=== PATIENT | female | born 1950 | race Caucasian/White ===

== ENCOUNTER 2019-02-03 10:52 | Emergency (ER) | payer OTHER, MEDICARE ==
[~2019-02-03] VITALS: Ht 152.4 cm; Wt 104.3 kg
--- OUTSIDE RECORDS SUMMARY | ~2019-02-03 | XMS | Clinical Summary ---
Demographics + + + | Address | [address] [place] [address] | | | [place] [address] | + + + | Home Phone | | + + + | Preferred Language | Unknown | + + + | Marital Status | | + + + | Voodoo Affiliation | Unknown | + + + | Race | Unknown | + + + | Ethnic Group | Unknown | + + + Author + + + | Author | [email or web address] (Historical as of | | | 11-16-18) | + + + | Organization | [email or web address] (Historical as of | | | 11-16-18) | + + + | Address | Unknown | + + + | Phone | Unavailable | + + + Support + + + + + | Name | Relationship | Address | Phone | + + + + + | Paulino Lawson | ECON | [address] | | | | | [place] | | | | | [address] | | + + + + + Care Team Providers + +------+ + | Care Shop Technician Name | Role | Phone | + +------+ + PP | Unavailable | + +------+ + Allergies Not on File Current Medications Not on file Active Problems Not on file Social History + +-------+ +--------+------+ | Tobacco Use | Types | Packs/Day | Years | Date | | | | | Used | | + +-------+ +--------+------+ | Never Assessed | | | | | + +-------+ +--------+------+ + + + | Sex Assigned at | Date Recorded | | | | + + + | Not on file | | + + + Plan of Treatment Not on file Results Not on filefrom Last 3 Months"
--- OUTSIDE RECORDS SUMMARY | ~2019-02-03 | XMS | Clinical Summary ---
Demographics + + + | Address | [address] | | | [place] [address] | + + + | Home Phone | | + + + | Preferred Language | Unknown | + + + | Marital Status | | + + + | Confucianism Affiliation | Unknown | + + + | Race | Unknown | + + + | Ethnic Group | Unknown | + + + Author + + + | Author | [facility] | | | and [place] | + + + | Organization | [facility] | | | and [place] | + + + | Address | Unknown | + + + | Phone | Unavailable | + + + Support + + +---------+ + | Name | Relationship | Address | Phone | + + +---------+ + | Paulino Lawson | ECON | Unknown | | + + +---------+ + | Aye Castro | ECON | Unknown | | + + +---------+ + | Nisha Barton | ECON | Unknown | | + + +---------+ + | Sheldon Lawson | ECON | Unknown | | + + +---------+ + Care Team Providers + +------+ + | Care Compensation Coordinator Name | Role | Phone | + +------+ + | Wes Campuzano MD | PCP | | + +------+ + Allergies + + + + + + | Active Allergy | Reactions | Severity | Noted | Comments | | | | | Date | | + + + + + + | Iodine | Other (See Comments) | Medium | | "got faint" with | | | | | | IVP. Does fine if | | | | | | given benadryl | | | | | | before | + + + + + + | Oxycodone | Itching | Low | 08/07/19 | | | | | | 19 | | + + + + + + Medications + + + +---------+------+------+-------+ | Medication | Sig | Dispensed | Refills | Star | End | Statu | | | | | | t | Date | s | | | | | | Date | | | + + + +---------+------+------+-------+ | cetirizine (ZYRTEC | Take 10 mg by mouth | | 0 | / | | Activ | | ALLERGY) 10 mg | Daily. | | | 3/20 | | e | | tablet | | | | 12 | | | + + + +---------+------+------+-------+ | sertraline | Take 100 mg by mouth | | 0 | 09/1 | | Activ | | (ZOLOFT) 100 mg | Daily. | | | 3/20 | | e | | tablet | | | | 12 | | | + + + +---------+------+------+-------+ | aspirin (BABY | Take 81 mg by mouth. | | 0 | 09/1 | | Activ | | ASPIRIN) 81 mg | | | | 3/20 | | e | | chewable tablet | | | | 12 | | | + + + +---------+------+------+-------+ | Ascorbic Acid | Take 250 mg by mouth | | 0 | | | Activ | | (VITAMIN C) 250 MG | Daily. | | | | | e | | tablet | | | | | | | + + + +---------+------+------+-------+ | celecoxib | Take 1 capsule by | 60 | 2 | 05/2 | | Activ | | (CELEBREX) 100 mg | mouth 2 times daily. | capsule | | 8/20 | | e | | capsuleIndications: | | | | 15 | | | | Chronic low back | | | | | | | | pain, DDD | | | | | | | | (degenerative disc | | | | | | | | disease), lumbar, | | | | | | | | DDD (degenerative | | | | | | | | disc disease), | | | | | | | | cervical, Chronic | | | | | | | | neck pain | | | | | | | + + + +---------+------+------+-------+ | azelastine | Place 1 drop into | | 0 | | | Activ | | (OPTIVAR) 0.05 % | both eyes Twice | | | | | e | | ophthalmic solution | daily as needed. | | | | | | + + + +---------+------+------+-------+ | betamethasone | Apply 1 Application | | 0 | | | Activ | | dipropionate 0.05% | topically Twice | | | | | e | | cream | daily as needed. | | | | | | + + + +---------+------+------+-------+ | | Apply topically | | 0 | | | Activ | | clotrimazole-betamet | Twice daily as | | | | | e | | hasone (LOTRISONE) | needed. | | | | | | | cream | | | | | | | + + + +---------+------+------+-------+ | desonide (DESOWEN) | Apply topically | | 0 | | | Activ | | 0.05% cream | Twice daily as | | | | | e | | | needed. | | | | | | + + + +---------+------+------+-------+ | econazole 1% cream | Apply topically | | 0 | | | Activ | | | Twice daily as | | | | | e | | | needed. | | | | | | + + + +---------+------+------+-------+ | fluticasone | 1 spray by Nasal | | 0 | | | Activ | | (FLONASE) 50 | route Daily. | | | | | e | | mcg/nasal spray | | | | | | | + + + +---------+------+------+-------+ | | Take 1 tablet by | | 0 | | | Activ | | HYDROcodone-acetamin | mouth every 6 hours | | | | | e | | ophen (NORCO) 5-325 | as needed for Pain. | | | | | | | mg per tablet | | | | | | | + + + +---------+------+------+-------+ | ipratropium | 2 sprays by Nasal | | 0 | | | Activ | | (ATROVENT) 0.03% | route 3 times daily | | | | | e | | nasal spray | as needed for | | | | | | | | Rhinitis. | | | | | | + + + +---------+------+------+-------+ | pramipexole | Take 0.75 mg by | | 0 | | | Activ | | (MIRAPEX) 0.75 MG | mouth as needed. | | | | | e | | tablet | | | | | | | + + + +---------+------+------+-------+ | mirabegron | Take 50 mg by mouth | | 0 | | | Activ | | (MYRBETRIQ) 50 mg ER | Daily. | | | | | e | | tablet | | | | | | | + + + +---------+------+------+-------+ | omeprazole | Take 20 mg by mouth | | 0 | | | Activ | | (PRILOSEC) 20 mg | every morning | | | | | e | | capsule | (before breakfast). | | | | | | + + + +---------+------+------+-------+ | Pseudoephedrine | Take by mouth as | | 0 | | | Activ | | HCl (SUDAFED 12 HOUR | needed. | | | | | e | | PO) | | | | | | | + + + +---------+------+------+-------+ | trospium 20 MG | Take 20 mg by mouth | | 0 | | | Activ | | tablet | 2 times daily. | | | | | e | + + + +---------+------+------+-------+ | cholecalciferol | Take 1,000 Units by | | 0 | | | Activ | | (VITAMIN D-3) 1000 | mouth Daily. | | | | | e | | units TABS | | | | | | | + + + +---------+------+------+-------+ | fexofenadine | Take 180 mg by mouth | | 0 | | | Activ | | (RED) 180 mg | Daily. | | | | | e | | tablet | | | | | | | + + + +---------+------+------+-------+ | | 1 spray by Each Nare | | 0 | | | Activ | | azelastine-fluticaso | route Daily. | | | | | e | | ne (DYMISTA) 137-50 | | | | | | | | mcg/nasal spray | | | | | | | + + + +---------+------+------+-------+ | mometasone | 2 sprays by Both | | 0 | | | Activ | | (NASONEX) 50 | nostrils route Daily | | | | | e | | mcg/nasal spray | as needed. 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 | | + + + | Preventative health care | | + + + + + | Overview: Flex sig/colon: 2006 | | | | EGD: 05/30/11 | | | | Mammo: 05/2007 | | | | Pap: 09/2008 | + + Family History + + +------+ + | Medical History | Relation | Name | Comments | + + +------+ + | Arthritis | Father | | | + + +------+ + | Diabetes | Father | | | + + +------+ + | Heart disease | Father | | | + + +------+ + | Lung cancer | Father | | | + + +------+ + | Diabetes | Mother | | | + + +------+ + | Heart disease | Mother | | | + + +------+ + | High blood pressure | Mother | | | + + +------+ + | Lung cancer | Mother | | | + + +------+ + + +------+--------+ + | Relation | Name | Status | Comments | + +------+--------+ + | Father | | | | + +------+--------+ + | Mother | | | | + +------+--------+ + Social History + +-------+ +--------+------+ | Tobacco Use | Types | Packs/Day | Years | Date | | | | | Used | | + +-------+ +--------+------+ | Never Smoker | | | | | + +-------+ +--------+------+ + +---+---+---+ | Smokeless Tobacco: | | | | | Never Used | | | | + +---+---+---+ + + +---------+ + | Alcohol Use | Drinks/We | oz/Week | Comments | | | ek | | | + + +---------+ + | Yes | 1 | 0.6 | | | | Glasses | | | | | of wine | | | + + +---------+ + + + + | Sex Assigned at | Date Recorded | | | | + + + | Not on file | | + + + + + + + | Job Start Date | Occupation | Industry | + + + + | Not on file | Not on file | Not on file | + + + + + + + + | Travel History | Travel Start | Travel End | + + + + + + | No recent travel history available. | + + Last Filed Vital Signs + + + + | Vital Sign | Reading | Time Taken | + + + + | Blood Pressure | 123/57 | 08/07/20181844 PDT | + + + + | Pulse | 81 | 08/07/20181844 PDT | + + + + | Temperature | 36.4 C (97.5 F) | 08/07/20181801 PDT | + + + + | Respiratory Rate | 14 | 08/07/20181844 PDT | + + + + | Oxygen Saturation | 95% | 08/07/20181844 PDT | + + + + | Inhaled Oxygen | - | - | | Concentration | | | + + + + | Weight | 105.2 kg (231 lb | 08/07/20181245 PDT | | | 14.8 oz) | | + + + + | Height | 152.4 cm (5') | 08/07/20181245 PDT | + + + + | Body Mass Index | 45.29 | 08/07/20181245 PDT | + + + + Plan of Treatment + + + + + | Health Maintenance | Due Date | Last Done | Comments | + + + + + | Hepatitis C | | | | | Screening | 0 | | | + + + + + | Vaccine: | | | | | Dtap/Tdap/Td (1 - | 9 | | | | Tdap) | | | | + + + + + | Colorectal Cancer | | | | | Screening | 0 | | | | (Colonoscopy) | | | | + + + + + | Vaccine: Zoster (1 | | | | | of 2) | 0 | | | + + + + + | Breast Cancer | | | | | Screening | 5 | | | + + + + + | Vaccine: | | | | | Pneumococcal 65+ | 5 | | | | Low/Medium Risk (1 | | | | | of 2 - PCV13) | | | | + + + + + | Adult Annual | | | | | Wellness Visit | 5 | | | + + + + + | Vaccine: Influenza | | | | | (#1) | 9 | | | + + + + + Results Not on filefrom Last 3 Months Insurance + +--------+ +--------+ +---------+--------+ | Payer | Benefi | Subscriber | Effect | Phone | Address | Type | | | t Plan | ID | hai | | | | | | / | | Dates | | | | | | Group | | | | | | + +--------+ +--------+ +---------+--------+ | MEDICARE | MEDICA | [id number] | 10/01/19 | [phone] | | Medica | | | RE | | 17-Pre | 5 | | re | | | PART A | | sent | | | | | | AND B | | | | | | + +--------+ +--------+ +---------+--------+ | UMR | UMR | [id number] | 04/02/19 | | | PPO | | | [place] | 0 | 14-Pre | | | | | | | | sent | | | | | | HEALTH | | | | | | | | CARE | | | | | | | | PPO | | | | | | + +--------+ +--------+ +---------+--------+ | [employer] | PROV | [id number] | 04/02/19 | [phone] | | PPO | | PLAN | HLTH | | 15-Pre | 5 | | | | | PREFER | | sent | | | | | | RED | | | | | | | | PPO | | | | | | | | 250 | | | | | | + +--------+ +--------+ +---------+--------+ | UMR | UMR | [id number] | 04/02/19 | | | PPO | | | PPO | 0 | 14-Pre | | | | | | | | sent | | | | + +--------+ +--------+ +---------+--------+ | MEDICARE | MEDICA | [id number] | 10/01/19 | [phone] | | Medica | | | RE | | 17-Pre | 5 | | re | | | PART A | | sent | | | | | | AND B | | | | | | + +--------+ +--------+ +---------+--------+ + +--------+ +--------+ + + | Guarantor Name | Accoun | Relation to | Date | Phone | Billing Address | | | t Type | Patient | of | | | | | | | | | | + +--------+ +--------+ + + | La Lawson | Person | Self | [birth year] | [address] | | | al/Fam | | 1951 | [phone] | [place] [address] | | | sasha | | | 1 (Home) | | + +--------+ +--------+ + + | La Lawson | Person | Self [birth year] | [address] | | | al/Fam | | 1951 | [phone] | [place] [address] | | | sasha | | | 1 (Home) | | + +--------+ +--------+ + + Advance Directives Patient has advance care planning documents, and code status on file. For more information, please contact:[facility] and [place] [phone] + + + + + | Code Status | Date | Date | Comments | | | Activated | Inactivated | | + + + + + | Full Code | 08/07/2018 | 08/07/2018 | | | | 18:40 | 21:21 | | + + + + +
[2019-02-03] MEDS ORDERED: OMEPRAZOLE20 MG PO (11:03)
[2019-02-03] MEDS ORDERED: FLUTICASONE PRO16 GM NAS (11:04)
[2019-02-03] MEDS ORDERED: MOMETASONE FURO17 GM NAS (11:04)
[2019-02-03] MEDS ORDERED: SERTRALINE HCL100 MG PO (11:04)
[2019-02-03] MEDS ORDERED: CELECOXIB100 MG PO (11:04)
[2019-02-03] MEDS ORDERED: AZELASTINE137 MCG/0. NAS (11:04)
[2019-02-03] MEDS ORDERED: ESTRADIOL42.5 GM VAGINAL (11:05)
[2019-02-03] MEDS ORDERED: MYRBETRIQ50 MG PO (11:05)
[2019-02-03] MEDS ORDERED: NORCO 5-325 TA1 EACH PO (12:05)
== END 2019-02-03 12:35 | disposition home or self-care (01) ==
LOC: ED 10:52
DX: S82.832A Other fracture of upper and lower end of left fibula, initial encounter for closed fracture (principal); X50.9XXA Other and unspecified overexertion or strenuous movements or postures, initial encounter; F32.9 Major depressive disorder, single episode, unspecified; Z88.5 Allergy status to narcotic agent; Z88.8 Allergy status to other drugs, medicaments and biological substances; Z79.899 Other long term (current) drug therapy
CPT/HCPCS: 73590; 73610; 99283-25